=== PATIENT | male | born 1940 | race Caucasian/White ===

== ENCOUNTER 2019-03-21 16:25 | Outpatient (CLI) | payer MEDICARE | END 2019-03-21 16:26 | disposition critical access hospital (66) | LOC: EMS 16:25 | PROVIDERS: ATTEND Surgery | DX: S49.91XA Unspecified injury of right shoulder and upper arm, initial encounter (principal); R07.81 Pleurodynia; M54.9 Dorsalgia, unspecified; W11.XXXA Fall on and from ladder, initial encounter; Y92.008 Other place in unspecified non-institutional (private) residence as the place of occurrence of the external cause | CPT/HCPCS: A0425; A0429 ==

== ENCOUNTER 2019-03-21 17:06 | Emergency (ER) | payer MEDICARE ==
[2019-03-21] MEDS ORDERED: ONDANSETRON 4 MG/2 ML VIAL IVP STA (17:14)
[2019-03-21] MEDS ORDERED: HYDROmorphone 1 MG/ML CARPUJECT IVP STA ×2 (17:14→19:17)
[2019-03-21] MEDS ORDERED: IOVERSOL 320 100 ML VIAL IVP ONE ×3 (17:16→17:55)
--- NOTE | 2019-03-21 17:28 | ED Physician Documentation ---
PD HPI MAJOR TRAUMA - Stated complaint Stated Complaint: FALL FROM ROOF - Chief complaint Chief Complaint: Trauma Hd/Nk - History obtained from History obtained from: Patient, Family, EMS - History of Present Illness Mechanism of injury: Fell Where injury occurred: Home, Other (roof) Timing - onset: How many hours ago (1) Injury(ies) location: Head, Neck, Chest, Abdomen, Back, Right Upper Extremity (shoulder) Pain level max: 9 Pain level now: 9 Quality of pain: Pain, Aching, Dull Associated symptoms: No: LOC, AMS, Amnesia, Seizures, Ear drainage, Nasal drainage, Paresthesias, Dyspnea, Nausea / vomiting Symptoms improve with: Rest Worsens with: Movement, Palpation Contributing factors: No: Anticoagulated, Intoxicated Recently seen: Not recently seen Review of Systems Ten Systems: 10 systems reviewed and negative Constitutional: denies: Fever, Chills Ears: denies: Ear pain Nose: denies: Rhinorrhea / runny nose, Congestion Respiratory: denies: Cough GI: denies: Nausea, Vomiting, Diarrhea Skin: denies: Rash Musculoskeletal: denies: Neck pain, Back pain Neurologic: denies: Headache PD PAST MEDICAL HISTORY - Past Medical History Cardiovascular: None, High cholesterol Respiratory: None Endocrine/Autoimmune: None GI: Colon polyps, Other : Benign prostate hypertrophy HEENT: None Psych: None Musculoskeletal: None Derm: None - Past Surgical History General: Appendectomy Ortho: Shoulder arthroplasty - Present Medications Home Medications: Ambulatory Orders Medication Instructions Recorded Confirmed Tamsulosin [Flomax] 0.4 mg PO DAILY 02/25/15 03/21/19 Fenofibrate 160 mg PO DAILY 03/21/19 03/21/19 Finasteride 5 mg PO DAILY 03/21/19 03/21/19 - Allergies Allergies/Adverse Reactions: Allergies Allergy/AdvReac Type Severity Reaction Status Date / Time Penicillins Allergy Rash Verified 03/21/19 17:12 PD ED PE NORMAL - Vitals Vital signs reviewed: Yes - General General: Alert and oriented X 3, No acute distress, Well developed/nourished - HEENT HEENT: PERRL, Moist mucous membranes, Pharynx benign, Other (Abrasion to the right side of the forehead and right parietal area. No scalp hematomas. No palpable skull fractures.) - Neck Neck: Supple, no meningeal sign, No bony TTP - Cardiac Cardiac: RRR, Strong equal pulses - Respiratory Respiratory: No respiratory distress, Clear bilaterally, Other (Tender to palpation across the right ribs, midaxillary line.) - Abdomen Abdomen: Soft, Non tender, Non distended - Back Back: No spinal TTP - Derm Derm: Warm and dry - Extremities Extremities: No edema, Other (Mild discomfort with range of motion of the bilateral hips. No deformity. Pain present with range of motion of the right shoulder, mild tenderness. No deformity.) - Neuro Neuro: Alert and oriented X 3 Eye Opening: Spontaneous Motor: Obeys Commands Verbal: Oriented GCS Score: 15 - Psych Psych: Normal mood, Normal affect Results - Vitals Vitals: Vital Signs - 24 hr 03/21/19 03/21/19 03/21/19 17:12 17:39 18:00 Temperature 36.8 C Heart Rate 63 73 69 Respiratory 24 21 17 Rate Blood Pressure 177/77 H 195/82 H 171/76 H O2 Saturation 90 L 92 94 03/21/19 03/21/19 03/21/19 18:30 19:00 19:30 Temperature Heart Rate 71 69 80 Respiratory 17 18 16 Rate Blood Pressure 149/74 H 158/73 H 155/71 H O2 Saturation 95 95 95 Oxygen O2 Source Nasal cannula - Labs Labs: Laboratory Tests 03/21/19 03/21/19 03/21/19 17:47 17:47 17:47 WBC 12.1 H RBC 4.05 L Hgb 12.9 L Hct 37.6 L MCV 92.8 MCH 31.9 H MCHC 34.3 RDW 12.9 Plt Count 155 MPV 8.7 Neut # (Auto) 10.3 H Lymph # (Auto) 0.9 L Todd # (Auto) 0.7 Eos # (Auto) 0.1 Baso # (Auto) 0.0 Absolute Nucleated RBC 0.00 Nucleated RBC % 0.0 Sodium 135 Potassium 3.6 Chloride 102 Carbon Dioxide 24 Anion Gap 9.0 BUN 26 H Creatinine 1.1 Estimated GFR (MDRD) 65 L Glucose 165 H Calcium 8.3 L Total Bilirubin 0.7 AST 61 H ALT 50 Alkaline Phosphatase 46 Total Protein 6.3 L Albumin 3.4 Globulin 2.9 Albumin/Globulin Ratio 1.2 Lipase 36 Ethyl Alcohol < 5.0 Blood Type A POSITIVE Antibody Screen NEGATIVE - Rads (name of study) Head CT Radiology: Prelim report reviewed, EMP read contemporaneously, See rad report (Negative for intracranial acute hemorrhage, localizing edema or mass-effect by noncontrast CT. ) Cervical spine CT Radiology: Prelim report reviewed, EMP read contemporaneously, See rad report (No acute fracture or malalignment. Multilevel degenerative disk and facet disease as described. ) Chest CT Radiology: Prelim report reviewed, EMP read contemporaneously, See rad report (1. Nondisplaced single column comminuted fracture of the anterior mid to right T11 vertebral body without visible compression. 2. Rib fractures of the right sixth through 12th ribs and left 11th and 12th ribs as described. 3. Low lung volumes with moderate atelectasis suggesting splinting. No pneumothorax or effusions. 4. Mild likely posttraumatic pneumomediastinum of the lower anterior chest of indeterminate origin. ) Abdomen pelvis CT Radiology: Prelim report reviewed, EMP read contemporaneously, See rad report (1. Nonspecific mild left adrenal thickening, potentially post traumatic, with a djacent fat stranding compatible with post traumatic contusion. No large hematoma. Unremarkable right adrenal. 2. No other acute visceral traumatic injury. 3. No intra-abdominal hematoma or free fluid. 4. Multiple fractures including bilateral ribs, right aspect of T11 vertebral body, and left L2 and L3 and right L4 transverse processes. 5. Small right basilar pneumothorax. See chest CT report. 6. Incidental findings include cholelithiasis and colonic diverticulosis. ) PD MEDICAL DECISION MAKING - ED course Complexity details: reviewed results, re-evaluated patient, considered differential, d/w patient, d/w family, d/w mental health consultant ED course: 78-year-old male presents status post a fall off of his roof today. He has multiple rib fractures, small pneumomediastinum and a T11 fracture. No pneumothorax. No other acute findings on head CT, cervical spine CT, chest and abdomen and pelvis CT. Neurologically intact. Pain well controlled. Tetanus up-to-date. Patient will need admission for the multiple rib fractures and spine fracture for pain control. Discussed the case with Amy in Dr. Selina Lopez trauma surgery ([id number]) who graciously accepts in transfer. COBRA forms completed. This document was made in part using voice recognition software. While efforts are made to proofread this document, sound alike and grammatical errors may occur. Departure - Departure Disposition: 02 Transfer Acute Care Hosp Clinical Impression: T11 vertebral fracture Qualifiers: Encounter type: initial encounter Fracture type: closed Fracture morphology: unspecified fracture morphology Qualified Code(s): S22.089A - Unspecified fracture of T11-T12 vertebra, initial encounter for closed fracture Multiple rib fractures Qualifiers: Encounter type: initial encounter Fracture type: closed Laterality: bilateral Qualified Code(s): S22.43XA - Multiple fractures of ribs, bilateral, initial encounter for closed fracture Pulmonary contusion Qualifiers: Encounter type: initial encounter Laterality: unspecified laterality Qualified Code(s): S27.329A - Contusion of lung, unspecified, initial encounter Condition: Stable
[2019-03-21 18:07] LABS: BASOPHILS % (AUTO) 0.2 %; EOSINOPHILS # (AUTO) 0.1 10^3/uL (0.0-0.7); EOSINOPHILS % (AUTO) 0.7 %; HGB - HEMOGLOBIN 12.9 g/dL (14.0-18.0); LYMPHOCYTES # (AUTO) 0.9 10^3/uL (1.5-3.5); MEAN CORPUSCULAR HEMOGLOBIN 31.9 pg (27.0-31.0); MEAN CORPUSCULAR HGB CONC 34.3 g/dL (32.0-36.0); MEAN CORPUSCULAR VOLUME 92.8 fL (80.0-94.0); MEAN PLATELET VOLUME 8.7 fL (7.4-11.4); MONOCYTES # (AUTO) 0.7 10^3/uL (0.0-1.0); MONOCYTES % (AUTO) 5.9 %; NEUTROPHILS # (AUTO) 10.3 10^3/uL (1.5-6.6); PLT - PLATELET COUNT 155 10^3/uL (130-450); RED BLOOD COUNT 4.05 10^6/uL (4.70-6.10); RED CELL DISTRIBUTION WIDTH 12.9 % (12.0-15.0); WHITE BLOOD COUNT 12.1 x10^3/uL (4.8-10.8)
--- NOTE | 2019-03-21 18:20 | CT Report ---
Reason: Neck trauma, midline tenderness Procedure Date: 03/21/2019 Accession Number: [id number] / [id number] Procedure: CT - CERVICAL SPINE WO CPT Code: Final Report FULL RESULT: EXAM: CT CERVICAL SPINE WITHOUT CONTRAST DATE: 03/21/2019 05:45 PM. HISTORY: Neck trauma, midline pain. COMPARISONS: None. TECHNIQUE: Thin-section axial images were acquired of the cervical spine without contrast. Post-processing: Coronal and sagittal reformats. Other: None. In accordance with CT protocol optimization, one or more of the following dose reduction techniques were utilized for this exam: automated exposure control, adjustment of mA and/or KV based on patient size, or use of iterative reconstructive technique. FINDINGS: Alignment: No significant scoliosis or spondylolisthesis. Bones: No acute fracture or significant bone lesion identified. Interspace Levels/Facets: Multilevel degenerative disk disease present throughout the spine ranging from mild to severe. The worst disease is at the C3-C4 and C5-C7 levels. Moderate degenerative facet disease also present worst about the mid to lower cervical spine. Musculature: Normal. No fatty atrophy. Other: The paravertebral and prevertebral soft tissues are unremarkable. The lung apices are clear. IMPRESSION: 1. No acute fracture or malalignment. 2. Multilevel degenerative disk and facet disease as described. [facility]
--- NOTE | 2019-03-21 18:24 | CT Report ---
Reason: Head trauma, mod-severe Procedure Date: 03/21/2019 Accession Number: [id number] / [id number] Procedure: CT - HEAD WO CPT Code: Final Report FULL RESULT: EXAM: CT HEAD EXAM DATE: 03/21/2019 05:45 PM. CLINICAL HISTORY: Head trauma, mod-severe. Forehead laceration. COMPARISON: None. TECHNIQUE: Multiaxial CT images were obtained from the foramen magnum to the vertex. Reformats: Sagittal and coronal. IV contrast: None. In accordance with CT protocol optimization, one or more of the following dose reduction techniques were utilized for this exam: automated exposure control, adjustment of mA and/or KV based on patient size, or use of iterative reconstructive technique. FINDINGS: Parenchyma: Negative for intracranial hemorrhage. No midline shift or mass-effect. There is mild white matter hypodensity in the left basal ganglia. Extraaxial Spaces: No subdural or epidural collections identified. Ventricles: Normal in size and position. Sinuses and Orbits: There is bilateral maxillary sinus opacification with mucosal thickening. There are findings of previous sinus surgery. The mastoid sinuses are clear. Bones: No acute fracture is demonstrated. Other: None. IMPRESSION: 1. Negative for intracranial acute hemorrhage, localizing edema or mass-effect by noncontrast CT. RAD[facility]
[2019-03-21 18:25] LABS: ALBUMIN 3.4 g/dL (3.2-5.5); ALBUMIN/GLOBULIN RATIO 1.2 (1.0-2.2); ALKALINE PHOSPHATASE 46 IU/L (42-121); ALT ALANINE AMINOTRANSFERASE 50 IU/L (10-60); AST ASPARTATE AMINOTRANSFERASE 61 IU/L (10-42); BILIRUBIN,TOTAL 0.7 mg/dL (0.2-1.0); BUN - BLOOD UREA NITROGEN 26 mg/dL (6-20); CALCIUM 8.3 mg/dL (8.5-10.3); CARBON DIOXIDE - CO2 24 mmol/L (21-32); CHLORIDE 102 mmol/L (101-111); CREATININE 1.1 mg/dL (0.6-1.2); GFR - MDRD 65 (>89); GLUCOSE 165 mg/dL (70-100); LIPASE 36 U/L (22-51); SODIUM 135 mmol/L (135-145); TOTAL PROTEIN 6.3 g/dL (6.7-8.2)
--- NOTE | 2019-03-21 18:48 | CT Report ---
Reason: Chest trauma, blunt, high energy Procedure Date: 03/21/2019 Accession Number: [id number] / [id number] Procedure: CT - CHEST W CPT Code: Final Report FULL RESULT: EXAM: CT CHEST EXAM DATE: 03/21/2019 05:45 PM. CLINICAL HISTORY: Blunt chest trauma after a fall from roof today. COMPARISONS: ABDOMEN/PELVIS W/ 03/21/2019 5:34 PM. TECHNIQUE: Routine helical CT imaging was performed through the chest. IV contrast: 100 cc Optiray 320. Reconstructions: Coronal and sagittal. In accordance with CT protocol optimization, one or more of the following dose reduction techniques were utilized for this exam: automated exposure control, adjustment of mA and/or KV based on patient size, or use of iterative reconstructive technique. FINDINGS: Lungs/Pleura: The lung volumes are low with bilateral moderate dependent atelectasis. No consolidation, contusion, effusion or pneumothorax clearly identified. Several small peripheral air cysts are present about the right lung which could be acute or chronic. No pulmonary nodules evident. Mediastinum: Scattered small gas pockets are present within the anterior lower mediastinum, primarily within the epicardial fat. No gas bubbles in the mid mediastinum clearly identified. No mediastinal hematoma, mass or adenopathy. The heart is mildly enlarged. No evidence for aortic trauma or pulmonary emboli. Bones: An acute nondisplaced fracture involving the right greater than left anterior T11 vertebral body with components extending from the anterior cortex to the superior endplate noted. No visible vertebral body compression evident. Multiple posterior right rib fractures are present involving ribs 8 through 12. There is also a nondisplaced fracture of the anterolateral right seventh and sixth ribs. There are also fractures of the posterior left 11th and 12th ribs without displacement. A chronic appearing Schmorl's node of the inferior endplate of T12 noted. Multilevel degenerative disk disease present diffusely Visualized Abdomen: A tiny gallbladder stone is present. No clear solid organ injury in the upper abdomen. Other: None. IMPRESSION: 1. Nondisplaced single column comminuted fracture of the anterior mid to right T11 vertebral body without visible compression. 2. Rib fractures of the right sixth through 12th ribs and left 11th and 12th ribs as described. 3. Low lung volumes with moderate atelectasis suggesting splinting. No pneumothorax or effusions. 4. Mild likely posttraumatic pneumomediastinum of the lower anterior chest of indeterminate origin. [facility] The call report notification system was initiated by Dr. Nona Sanchez at 06:42 PM on 03/21/2019. The above critical result findings were discussed with Abe Meza by Dr. Nona Sanchez at 06:48 PM on 03/21/2019.
--- NOTE | 2019-03-21 18:53 | CT Report ---
Reason: Abdominal trauma, blunt Procedure Date: 03/21/2019 Accession Number: [id number] / [id number] Procedure: CT - Abdomen/Pelvis W CPT Code: Final Report FULL RESULT: EXAM: CT ABDOMEN AND PELVIS EXAM DATE: 03/21/2019 05:45 PM. CLINICAL HISTORY: Abdominal trauma, blunt. Right chest/abdominal pain after fall from roof today. COMPARISONS: Lumbar spine series 06/06/2008. TECHNIQUE: Routine helical CT imaging was performed through the abdomen and pelvis. IV contrast: 100 cc Optiray 320. Enteric contrast: No. Reconstructions: Coronal and sagittal. In accordance with CT protocol optimization, one or more of the following dose reduction techniques were utilized for this exam: automated exposure control, adjustment of mA and/or KV based on patient size, or use of iterative reconstructive technique. FINDINGS: Lung Bases: Small right basilar pneumothorax. Posterior pleural thickening and subjacent airspace opacities, right greater than left. See report of concurrent chest CT. Liver: Normal size and contour without suspicious lesion. No subcapsular hematoma. Gallbladder/Bile Ducts: Cholelithiasis. No vulvar wall thickening or dilated ducts. Spleen: Normal. Pancreas: Unremarkable. Adrenal Glands: Mild left adrenal thickening up to 9 mm (58/3) with infiltration of adjacent at planes. Unremarkable right adrenal. Kidneys: Essentially unremarkable, noting a tiny left upper pole cortical cyst. No hydronephrosis, mass, or abnormal parenchymal enhancement. Nonspecific mild perinephric fat stranding. No perinephric fluid. Peritoneal Cavity/Bowel: No intestinal dilatation or focal inflammatory process identified. Colonic diverticulosis. No free fluid, free air, or mesenteric hematoma. No pathologic adenopathy by size criteria. Retroperitoneum: No mass or focal hematoma. Pelvic Organs: No gross abnormality of the partially distended bladder, noting tiny urachal remnant. Other pelvic organs unremarkable. No abnormal fluid collection or pathologic adenopathy. Department fatty inguinal canals, left greater than right. Vasculature: No aneurysm. Scattered calcified plaques of the aorta and common iliac arteries. Bones: Transitional segment at the lumbosacral junction designated as lumbarization of S1. Stable fusion device between the spinous processes of L5 and S1. There is an oblique fracture of the right aspect of the T11 vertebral body involving the superior endplate. Focal defect with sclerosis of central inferior T12 vertebral body, probably Schmorl's node. Acute fractures of posterior right eighth through 12th ribs. Nondisplaced fracture posterior left 12th and 11th ribs. Nondisplaced fracture left L2 and L3 transverse processes and displaced fracture of right L4 transverse process. IMPRESSION: 1. Nonspecific mild left adrenal thickening, potentially post traumatic, with adjacent fat stranding compatible with post traumatic contusion. No large hematoma. Unremarkable right adrenal. 2. No other acute visceral traumatic injury. 3. No intra-abdominal hematoma or free fluid. 4. Multiple fractures including bilateral ribs, right aspect of T11 vertebral body, and left L2 and L3 and right L4 transverse processes. 5. Small right basilar pneumothorax. See chest CT report. 6. Incidental findings include cholelithiasis and colonic diverticulosis. RAD[facility]
[2019-03-21] MEDS ORDERED: SODIUM CHLORIDE 0.9% 1,000 ML IV ONE (20:08)
[2019-03-21] MEDS ORDERED: TETANUS/DIPHTHERIA/PERTUSSIS 0.5 ML SYRINGE IM ONE (20:18)
[2019-03-21 20:31] VITALS: BP 176/84
== END 2019-03-21 20:49 | disposition short-term general hospital (02) ==
LOC: EDUNIT# → ED 17:06
DX: S00.81XA Abrasion of other part of head, initial encounter (principal); S00.01XA Abrasion of scalp, initial encounter; S27.321A Contusion of lung, unilateral, initial encounter; S22.43XA Multiple fractures of ribs, bilateral, initial encounter for closed fracture; S22.088A Other fracture of T11-T12 vertebra, initial encounter for closed fracture; T79.7XXA Traumatic subcutaneous emphysema, initial encounter; W13.2XXA Fall from, out of or through roof, initial encounter; W22.01XA Walked into wall, initial encounter; Y93.39 Activity, other involving climbing, rappelling and jumping off; Y92.008 Other place in unspecified non-institutional (private) residence as the place of occurrence of the external cause
CPT/HCPCS: 36415; 70450; 71260; 72125; 74177; 80053; 83690; 85025; 86850; 86900; 86901; 90715; 96374; 96376; 99284; 99285; J1170; Q9967; 80320

== ENCOUNTER 2019-03-21 20:56 | Outpatient (CLI) | payer MEDICARE | END 2019-03-21 20:57 | disposition short-term general hospital (02) | LOC: EMS 20:56 | PROVIDERS: ATTEND Surgery | DX: S22.41XA Multiple fractures of ribs, right side, initial encounter for closed fracture (principal); S22.089A Unspecified fracture of T11-T12 vertebra, initial encounter for closed fracture; W11.XXXA Fall on and from ladder, initial encounter | CPT/HCPCS: A0425; A0426 ==

== ENCOUNTER 2019-05-15 05:14 | Outpatient (CLI) | payer MEDICARE ==
--- NOTE | 2019-05-15 08:00 | XRAY Report ---
Reason: PATH FRAC OF RICHELLE FREEMAN Procedure Date: 05/15/2019 Accession Number: [id number] / [id number] Procedure: XR - ThoracoLumbar 2 View CPT Code: 94277 Final Report FULL RESULT: EXAM: THORACOLUMBAR SPINE RADIOGRAPHY EXAM DATE: 05/15/2019 05:49 AM. CLINICAL HISTORY: Pathologic fracture of thoracic vertebra. Fell off a roof on March 21. Pain at T11-T12. 6 weeks in brace. Standing flexion/extension lateral views. COMPARISONS: XR LUMBAR SPINE 2 OR 3 VIEWS 06/06/2008 1:[address] ABDOMEN/PELVIS W/ 03/21/2019 5:34 PM. TECHNIQUE: Upright lateral flexion and extension views of the lower thoracic and lumbar spine. FINDINGS: Alignment: Normal. No spondylolisthesis. No abnormal motion with flexion or extension. Bones: Five [id number] lumbar vertebral bodies are present. Consistent with the prior CT on 03/21/2019, there is transitional anatomy at the lumbosacral junction with partial lumbarization of S1. The nondisplaced fracture of the T11 vertebral body seen on prior CT is not well visualized on these radiographs. The lumbar spine transverse process fracture seen on prior CT are not visualized on these lateral view radiographs. Minimal anterior wedging of the T12 and L1 vertebral bodies appears unchanged compared to prior lumbar spine radiographs on 06/06/2008. There is a posterior fusion device between the spinous processes of L5 and S1, as seen on prior exams. Disks: There are multilevel mild to moderate degenerative disk changes of the lower thoracic and lumbar spine, most advanced at the L4-L5 level. Facets: Mild to moderate multilevel degenerative facet changes are present. Soft Tissues: Unremarkable. IMPRESSION: 1. The nondisplaced fracture of the T11 vertebral body seen on prior CT is not well visualized on these radiographs. No abnormal motion with flexion or extension. 2. Multilevel degenerative changes of the lower thoracic and lumbar spine, similar to prior exams. [facility]
== END 2019-05-15 05:15 | disposition home or self-care (01) ==
LOC: DI 05:14
PROVIDERS: ATTEND Neurological Surgery
DX: M51.36 Other intervertebral disc degeneration, lumbar region (principal); M51.34 Other intervertebral disc degeneration, thoracic region; M47.816 Spondylosis without myelopathy or radiculopathy, lumbar region; M47.814 Spondylosis without myelopathy or radiculopathy, thoracic region
CPT/HCPCS: 72080

== ENCOUNTER 2019-07-06 07:15 | Outpatient (CLI) | payer MEDICARE ==
--- NOTE | 2019-07-06 19:26 | MRI Report ---
Reason: PAIN IN RT HIP Procedure Date: 07/06/2019 Accession Number: [id number] / [id number] Procedure: MRI - Hip RT W/O CPT Code: Final Report FULL RESULT: EXAM: RIGHT HIP MRI WITHOUT CONTRAST EXAM DATE: 07/06/2019 08:44 AM. CLINICAL HISTORY: Pain in right hip. Worsening right buttock pain with sharp pain right groin for past few months. Fell off a roof February 2019. COMPARISON: None. TECHNIQUE: Multiplanar, multisequence T1-weighted and fluid-sensitive, small rgqjx-[id number] sequences of the hip and large [id number]-jj-ikuu sequences of the pelvis without contrast. Other: None. FINDINGS: Bones: No fractures or subluxations. No marrow edema or bone lesions. Right/left Hip: No acetabular retroversion. Right hip alpha angle 52 degrees. No effusion or loose bodies. The articular cartilage is intact. Complex tear anterior-superior right hip acetabular labrum (zone 2). The ligamentum teres is intact. Other Joints: The visualized lumbar spine, sacroiliac joints, symphysis pubis, and contralateral hip are unremarkable. Musculature: No edema or fatty atrophy. The gluteus medius and minimus tendons are normal. The visualized hamstring tendons are normal. The ischiofemoral space is normal. Pelvic Cavity: The visualized viscera are unremarkable. No lymphadenopathy. No free fluid in the pelvis. Other: The visualized sciatic nerves are unremarkable. No bursitis. The subcutaneous tissues are unremarkable. Fluid signal partial tear adductor longus tendon undersurface symphysis pubis at the common aponeurosis. Small partial tear superior aspect of symphysis pubis rectus abdominis muscle attachment at the common aponeurosis (image 12 series 501). Increased signal attachment undersurface left pubic bone proximal adductor longus tendon consistent with the tendinosis/grade 1 partial tear. IMPRESSION: 1. Sports hernia or athletic pubalgia with fluid signal tear proximal adductor longus tendon attachment undersurface symphysis pubis and there is partial tear distal rectus abdominis muscle attachment symphysis pubis and common aponeurosis. 2. Grade 1 partial tear or tendinosis proximal left adductor longus tendon undersurface of symphysis pubis. 3. Complex tear anterior-superior right acetabular labrum (zone 2). [facility]
--- NOTE | 2019-07-06 19:27 | MRI Report ---
Reason: RT KNEE PAIN Procedure Date: 07/06/2019 Accession Number: [id number] / [id number] Procedure: MRI - Knee RT W/O CPT Code: Final Report FULL RESULT: EXAM: RIGHT KNEE MRI WITHOUT CONTRAST EXAM DATE: 07/06/2019 09:40 AM. CLINICAL HISTORY: Right knee pain. COMPARISON: None. TECHNIQUE: Multiplanar, multisequence T1-weighted and fluid-sensitive sequences of the knee without contrast. Other: None. FINDINGS: Bones: Posterior aspect medial tibial plateau subchondral fracture 1.4 cm AP dimension and 1.9 cm in transverse dimension with no unstable osteochondral fragment identified. Associated diffuse medial tibial plateau marrow edema. Articular Cartilage: Moderate chondromalacia posterior aspect lateral tibial plateau. Mild surface fibrillation patellar apex articular cartilage. Trochlear groove articular cartilage negative for fluid signal defect. Medial Meniscus: Horizontal degenerative tear posterior horn and body medial meniscus with extension to the inferior articular surface. Lateral Meniscus: Complex tear posterior horn lateral meniscus at the meniscal root. Cruciate Ligaments: The anterior and posterior cruciate ligaments are intact. Collateral Ligaments: The medial collateral and lateral collateral ligamentous structures are intact. Tendons: The quadriceps, patellar, semimembranosus, and popliteus tendons are unremarkable. Musculature: Edema and/or cystic changes proximal anterior tibialis muscle anterior compartment (image 1 series 4). Other: Moderate quantity of fluid patellar recesses. No popliteal cyst. Probable loose body posterior intercondylar fossa 1.6 cm in height (image 19 series 501 and image 24 series 801).The medial and lateral retinacula are intact. Posterior joint space ganglion cyst 2.9 cm in height, 9 mm in AP dimension and 1.4 cm in transverse dimension (image 20 series 501 and image 15 series 401). IMPRESSION: 1. Subchondral fracture posterior aspect medial tibial plateau 1.4 cm in AP dimension and 1.9 cm in transverse dimension with no unstable osteochondral fragment identified. Associated diffuse medial tibial plateau marrow edema. 2. Horizontal degenerative tear posterior horn and body medial meniscus with extension to the inferior articular surface. 3. Complex tear posterior horn lateral meniscus at the meniscal root. 4. Probable loose body posterior intercondylar fossa 1.6 cm. 5. Moderate quantity joint fluid. 6. Posterior joint space 2.9 cm in height, 9 mm in AP dimension and 1.4 cm in transverse dimension multiloculated cyst. [facility]
--- NOTE | 2019-07-06 21:38 | XRAY Report ---
Reason: PAIN IN RT HIP, RT KNEE PAIN Procedure Date: 07/06/2019 Accession Number: [id number] / [id number] Procedure: XR - Hip w/Pelvis 2-3V RT CPT Code: Final Report FULL RESULT: EXAM: RIGHT HIP RADIOGRAPHY EXAM DATE: 07/06/2019 09:25 AM. CLINICAL HISTORY: Right hip pain. COMPARISON: None. TECHNIQUE: 2 views including AP pelvis. FINDINGS: Bones: Normal. No fractures or bone lesion. Joints: Normal. No dislocation. The hip joint space is preserved. Soft Tissues: Unremarkable. IMPRESSION: Normal hip radiography. [facility]
--- NOTE | 2019-07-06 21:38 | XRAY Report ---
Reason: PAIN IN RT HIP, RT KNEE PAIN Procedure Date: 07/06/2019 Accession Number: [id number] / [id number] Procedure: XR - Knee 3 View RT CPT Code: Final Report FULL RESULT: EXAM: RIGHT KNEE RADIOGRAPHY EXAM DATE: 07/06/2019 09:25 AM. CLINICAL HISTORY: Right knee pain. COMPARISON: None. TECHNIQUE: 3 views. FINDINGS: Bones: Normal. No fractures or bone lesions. Joints: Normal. No effusion. No subluxations. Soft Tissues: Unremarkable. IMPRESSION: Normal knee radiography. [facility]
== END 2019-07-06 07:16 | disposition home or self-care (01) ==
LOC: DI 07:15
PROVIDERS: ATTEND Nurse Practitioner Family
DX: S73.191A Other sprain of right hip, initial encounter (principal); S76.211A Strain of adductor muscle, fascia and tendon of right thigh, initial encounter; S76.801A Unspecified injury of other specified muscles, fascia and tendons at thigh level, right thigh, initial encounter; M67.951 Unspecified disorder of synovium and tendon, right thigh; S82.141A Displaced bicondylar fracture of right tibia, initial encounter for closed fracture; M94.261 Chondromalacia, right knee; S83.241A Other tear of medial meniscus, current injury, right knee, initial encounter; S83.271A Complex tear of lateral meniscus, current injury, right knee, initial encounter; M25.461 Effusion, right knee; M25.861 Other specified joint disorders, right knee

== ENCOUNTER 2020-04-18 10:22 | Outpatient (CLI) | payer MEDICARE | END 2020-04-18 10:23 | disposition home or self-care (01) | LOC: RT 10:22 | PROVIDERS: ATTEND Internal Medicine Cardiovascular Disease | DX: R00.1 Bradycardia, unspecified (principal) | CPT/HCPCS: 93005 ==

== ENCOUNTER 2020-05-04 08:00 | Outpatient (CLI) | payer MEDICARE ==
--- NOTE | 2020-05-04 16:12 | XRAY Report ---
PROCEDURE: Elbow 3 View LT INDICATIONS: LEFT ELBOW PAIN TECHNIQUE: 3 views of the elbow were acquired. COMPARISON: None FINDINGS: Bones: No fractures or dislocations. No suspicious bony lesions. Soft tissues: No elbow joint effusion. No suspicious soft tissue calcifications. IMPRESSION: No evidence acute bony abnormality of the left elbow. Reviewed by: Dank Calvo MD on 05/04/2020 3:11 PM [facility] Approved by: Dank Calvo MD on 05/04/2020 3:11 PM [facility] Station ID: [id number]
== END 2020-05-04 23:59 | disposition home or self-care (01) ==
LOC: DI.S 08:00
PROVIDERS: ATTEND Physician Assistant Medical
DX: M25.522 Pain in left elbow (principal)

== ENCOUNTER 2022-09-05 18:23 | Emergency (ER) | payer MEDICARE ==
[2022-09-05 18:33] VITALS: BP 150/70
--- NOTE | 2022-09-05 18:52 | ED Physician Documentation ---
PD HPI HEENT - Stated complaint Stated Complaint: TOOTH PX - Chief complaint Chief Complaint: Heent - History obtained from History obtained from: Patient, Family () - History of Present Illness Timing - onset: How many days ago (3) Timing - duration: Days (3) Timing - details: Gradual onset, Still present Location: Tooth Improves: Medication Worsens: Everything Associated symptoms: No: Fever, Congestion, Rhinorrhea, Trismus, Unable to swallow, Swollen nodes, Facial swelling, Headache Similar symptoms before: Diagnosis (bad tooth) Recently seen: Not recently seen - Additional information Additional information: 81-year-old Clay Christina has developed a sore tooth under a crown on the right lower.He has had some relief of his pain now with a combination of ibuprofen and acetaminophen. Review of Systems Constitutional: denies: Fever Eyes: denies: Decreased vision Ears: denies: Ear pain Nose: denies: Rhinorrhea / runny nose, Congestion Throat: reports: Dental pain / toothache. denies: Sore throat Cardiac: denies: Chest pain / pressure Respiratory: denies: Cough PD PAST MEDICAL HISTORY - Past Medical History Cardiovascular: None, High cholesterol Respiratory: None Endocrine/Autoimmune: None GI: Colon polyps, Other : Benign prostate hypertrophy HEENT: None Psych: None Musculoskeletal: None Derm: None - Past Surgical History Past Surgical History: Yes General: Appendectomy Ortho: Shoulder arthroplasty - Present Medications Home Medications: Ambulatory Orders Medication Instructions Recorded Confirmed Tamsulosin [Flomax] 0.4 mg PO DAILY 02/25/15 03/21/19 Fenofibrate 160 mg PO DAILY 03/21/19 03/21/19 Finasteride 5 mg PO DAILY 03/21/19 03/21/19 Amoxicillin 875 mg PO BID #14 tablet 09/05/22 - Allergies Allergies/Adverse Reactions: Allergies Allergy/AdvReac Type Severity Reaction Status Date / Time Penicillins Allergy Rash Verified 09/05/22 18:28 - Social History Does the pt smoke?: No Smoking Status: Never smoker Does the pt drink ETOH?: Yes Does the pt have substance abuse?: No - Immunizations Immunizations: TDAP >10years/unknown PD ED PE NORMAL - Vitals Vital signs reviewed: Yes (hypertensive ) - General General: Alert and oriented X 3, No acute distress, Well developed/nourished - HEENT HEENT: Atraumatic, PERRL, EOMI, Other (There are gold crowns to 2 lower molars both of them are tender to tap. 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 He does have an allergy to penicillin and his assures me that he is able to take amoxicillin. Departure - Departure Disposition: 01 Home, Self Care Clinical Impression: Dental infection Condition: Stable Instructions: ED Tooth Pain Follow-Up: Jessica Luciano, INFORMATION ASSURANCE OFFICER [Primary Care Provider] - Prescriptions: Amoxicillin 875 mg PO BID #14 tablet Comments: Clay today looks like you have a dental infection and we are providing some antibiotic in the form of amoxicillin for this. Today we have dispensed some 500 mg pills which she will need to take 3 times per day. I have E scribed some amoxicillin to the [facility] in [place] and this is an 875 mg pill which she will only need to take twice per day.
[2022-09-05] MEDS ORDERED: AMOXICILLIN 250 MG Prepack 6 PO STA (19:18)
[2022-09-05] MEDS: AMOXICILLIN 250 MG Prepack 6 PO SCH ×2 (19:33→19:38)
== END 2022-09-05 19:44 | disposition home or self-care (01) ==
LOC: ED 18:23
DX: K08.89 Other specified disorders of teeth and supporting structures (principal)
CPT/HCPCS: 99281; 99283

== ENCOUNTER 2023-01-14 07:56 | Emergency (ER) | payer MEDICARE ==
--- NOTE | 2023-01-14 08:11 | ED Physician Documentation ---
PD HPI HEENT - Stated complaint Stated Complaint: RT FACE SWELLING/PX - Chief complaint Chief Complaint: Heent - History obtained from History obtained from: Patient - History of Present Illness Timing - onset: Yesterday (quick worsening of swelling and pain right lower tooth and face over past 2 days. Started with tooth pain 2 days ago and talked with dentist yesterday who scripted abx to pharmacy but pt not able to get it before closing and they are not open today. Pain and swelling markedly worse today.) Timing - duration: Days (2) Timing - details: Abrupt onset, Still present Associated symptoms: Facial swelling (right mandible area.). No: Fever, Swollen nodes Similar symptoms before: Diagnosis (dental infection with abscess) Review of Systems Constitutional: denies: Fever, Chills PD PAST MEDICAL HISTORY - Past Medical History Past Medical History: Yes Cardiovascular: None, High cholesterol Respiratory: None Endocrine/Autoimmune: None GI: Colon polyps, Other : Benign prostate hypertrophy HEENT: None Psych: None Musculoskeletal: None Derm: None - Past Surgical History Past Surgical History: Yes General: Appendectomy Ortho: Shoulder arthroplasty - Present Medications Home Medications: Ambulatory Orders Medication Instructions Recorded Confirmed Fenofibrate 160 mg PO DAILY 03/21/19 01/14/23 - Allergies Allergies/Adverse Reactions: Allergies Allergy/AdvReac Type Severity Reaction Status Date / Time Penicillins Allergy Rash Verified 01/14/23 08:10 - Social History Does the pt smoke?: No Smoking Status: Never smoker Does the pt drink ETOH?: Yes Does the pt have substance abuse?: No - Immunizations Immunizations: TDAP >10years/unknown PD ED PE NORMAL - Vitals Vital signs reviewed: Yes - General General: Alert and oriented X 3, No acute distress, Well developed/nourished - HEENT HEENT: No: Dentition benign (right lower tooth with crown in place, tender to percussion. Gum with swelling extending to buccal mucosa but no fluctuance/abscess. ) - Neck Neck: Supple, no meningeal sign, No adenopathy Results - Vitals Vitals: Vital Signs - 24 hr 01/14/23 08:08 Temperature 36.0 C L Heart Rate 43 L Respiratory 15 Rate Blood Pressure 168/69 H O2 Saturation 97 Oxygen O2 Source Room air PD Medical Decision Making - ED course Complexity details: considered differential (dental infection with local swelling but no abscess in soft tissue for draining. Rx with abx and anti- inflammatories. ), d/w patient Departure - Departure Disposition: 01 Home, Self Care Clinical Impression: Dental infection Condition: Stable Record reviewed to determine appropriate education?: Yes Follow-Up: Isaac Lua DDS [Provider Admit Priv/Credential] - Comments: Cephalexin antibiotic for 500 mg 4 times daily for today. 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 Anti-inflammatory such as ibuprofen or naproxen can be helpful. Warm towels to the area to improve blood flow to help fight off infection. You could also use some antiseptic mouth rinse such as Listerine or such. I would anticipate improvement over the next few days. Tylenol if needed for pains. Follow-up with the oral surgeon that your dentist referred you to. Most likely this is Dr. Beard up in [place]. I provided their phone number as well. Forms: PCP List Discharge Date/Time: 01/14/23 08:51
[2023-01-14 08:17] VITALS: BP 168/69; O2SAT 97
[2023-01-14] MEDS ORDERED: CEPHALEXIN 250 MG Prepack 8 CAP BOTTLE PO STA (08:29)
[2023-01-14] MEDS ORDERED: cephALEXin 250 MG CAPSULE PO STA (08:29)
== END 2023-01-14 08:51 | disposition home or self-care (01) ==
LOC: ED 07:56
DX: K04.7 Periapical abscess without sinus (principal)
CPT/HCPCS: 99282; 99283; A9270